=== PATIENT | male | born 1955 | race African-American/Black ===

== ENCOUNTER 2019-03-16 07:43 | Emergency (ER) | payer OTHER, SELFPAY ==
[2019-03-16 07:52] VITALS: BP 122/98; PULSE 114; RESP 18; TEMP 36.8; O2SAT 99; BMI 28.5
--- NOTE | 2019-03-16 07:55 | ED_ITS ---
HPI - Weakness General Chief complaint: Weakness Stated complaint: Pulse rate over 100 Time Seen by Provider: 03/16/19 07:46 Source: patient Mode of arrival: Wheelchair Limitations: no limitations History of Present Illness HPI Narrative: Patient is a 63-year-old male. History of hypertension. Also history of renal failure. He is on peritoneal dialysis which he does every evening. He has been on this for the past 3 years. Last week he started to not feel well. States that he was hypotensive. He went to an outside hospital. He states he was found to be anemic with a hemoglobin in the 7 range. Also was tachycardic. I do not have these results to evaluate. He stated that he received 1 unit of red blood cells. He felt slightly better for short period of time after this. Since that time he has he started to feel weak. He also states that his heart rate is elevated. Denies any chest pain or shortness of breath. States that he does produce a very small amount urine. Has not taken his blood pressure medications this morning. Related Data Home Medications Medication Instructions Recorded Confirmed amlodipine 5 mg PO DAILY 03/16/19 03/16/19 calcitriol 0.5 mcg PO DAILY 03/16/19 03/16/19 calcium carbonate [Tums E-X] 600 mg PO BID PRN 03/16/19 03/16/19 cinacalcet [Sensipar] 60 mg PO DAILY 03/16/19 03/16/19 darbepoetin triny in polysorbat 40 mcg IV Q4W 03/16/19 03/16/19 [Aranesp (in polysorbate)] diazepam 5 mg PO BID 03/16/19 03/16/19 lisinopril 40 mg PO DAILY 03/16/19 03/16/19 multivitamin with minerals 1 tab PO DAILY 03/16/19 03/16/19 paricalcitol [Zemplar] 2.5 mcg IV DIRECTED 03/16/19 03/16/19 sevelamer carbonate 800 mg PO TID 03/16/19 03/16/19 sildenafil (antihypertensive) 20 mg PO TID 03/16/19 03/16/19 [Revatio] Allergies Allergy/AdvReac Type Severity Reaction Status Date / Time penicillin G [PENICILLIN G] Allergy Unknown Verified 03/16/19 07:52 Review of Systems Constitutional Constitutional: Reports fatigue, Denies fever(s) and Reports lethargy Cardiovascular Cardiovascular: Denies chest pain, Reports rapid heart rate, Denies palpitations, Denies dyspnea and Denies dyspnea on exertion Respiratory Respiratory: Denies dyspnea and Denies dyspnea on exertion Gastrointestinal Gastrointestinal: Denies abdominal pain, Denies nausea and Denies vomiting Genitourinary Comments: No change in urine output Musculoskeletal Musculoskeletal: Denies myalgias and Denies arthralgias Integumentary/Breasts Skin/Breast: Denies lesions and Denies rash Neurologic Neurologic: Denies behavioral changes Psychiatric Psychiatric: Denies behavioral changes Endocrine Endocrine: Reports fatigue and Denies palpitations Hematologic/Lymphatic Hematologic/Lymphatic: Denies easy bleeding and Denies easy bruising Patient History Medical/Surgical History Medical History End stage renal disease due to hypertension (Acute) Hypertension (Acute) Peritoneal dialysis catheter in place (Acute) Social History Smoking Status: Never smoker Family/Social History Social History Smoking Status: Never smoker Substance Use Type: does not use Exam Initial Vital Signs Initial Vital Signs: Vital Signs Temperature 98.2 F 03/16/19 07:52 Pulse Rate 114 H 03/16/19 07:52 Respiratory Rate 18 03/16/19 07:52 Blood Pressure 122/98 H 03/16/19 07:52 Pulse Oximetry 99 03/16/19 07:52 Const General: cooperative, comfortable, well developed and well groomed Orientation: alert, awake and oriented x3 Resp Effort & Inspection: normal respiratory effort Auscultation: clear to auscultation bilaterally Cardio Rate: tachycardic Rhythm: regular rhythm Pulses: radial pulses present GI Inspection: non-distended Palpation: soft Other: Peritoneal dialysis catheter left lower quadrant without signs very Skin Lesions: no lesions Rashes: no rashes Neuro General: alert, awake and oriented x3 Cognition: normal cognition Speech: speech normal Extrem General: normal to inspection and capillary refill normal Psych Appearance: grossly normal and well kempt Course Orders Ordered: ED Orders 03/16/19 08:57 Ammonia (NH3) Stat Discontinued Medications Sodium Chloride (Normal Saline 0.9%) 1,000 mls @ 500 mls/hr IV BOLUS ONE Stop: 03/16/19 11:53 Last Infusion: 03/16/19 11:56 Dose: 0 mls/hr Documented by: Admin: 03/16/19 10:04 Dose: 500 mls/hr Documented by: LYNDSEY Sodium Chloride (Normal Saline 0.9%) 500 mls @ 1,000 mls/hr IV BOLUS ONE Stop: 03/16/19 12:37 Last Infusion: 03/16/19 13:10 Dose: 0 mls/hr Documented by: Admin: 03/16/19 12:12 Dose: 1,000 mls/hr Documented by: JOSHUA Vital Signs Vital signs: Vital Signs - 8 hr 03/16/19 10:06 03/16/19 11:56 03/16/19 12:30 Pulse Rate 111 H 109 H 93 H Respiratory Rate 18 18 21 Blood Pressure Blood Pressure [Left Arm] 101/78 121/83 106/78 Pulse Oximetry 100 100 97 03/16/19 13:34 Pulse Rate 110 H Respiratory Rate 16 Blood Pressure 113/74 Blood Pressure [Left Arm] Pulse Oximetry 98 MDM - Weakness Lab Data Attestation: I reviewed the patient's lab results. Result diagrams: 03/16/19 08:05 03/16/19 08:05 Labs: Lab Results 03/16/19 03/16/19 03/16/19 Range/Units 08:05 08:05 08:05 WBC 6.7 (4.5-11.0) X10^3/uL RBC 3.11 L (4.5-5.9) X10^6/uL Hgb 9.2 L (13.5-17.5) g/dL Hct 26.7 L (41-53) % MCV 85.7 (80-100) fL MCH 29.6 (26-34) PG MCHC 34.5 (30-36) % RDW 18.6 H (11.6-14.8) % Plt Count 365 (150-400) X10^3/uL Neut % (Auto) 78.3 H (50-75) % Lymph % (Auto) 9.4 L (25-40) % [place] % (Auto) 9.7 (3-14) % Eos % (Auto) 1.5 L (2-4) % Baso % (Auto) 1.1 (0-2) % Neut # (Auto) 5300 (9337-2710) /uL Lymph # (Auto) 600 L (5635-6227) /uL [place] # (Auto) 700 (0-900) /uL Eos # (Auto) 100 (0-450) /uL Baso # (Auto) 100 (0-100) /uL Sodium 129 L (137-145) mmol/L Potassium 4.9 (3.4-5.1) mmol/L Chloride 86 L (98-107) mmol/L Carbon Dioxide 21 L (22-32) mmol/L BUN 86 H (9-20) mg/dL Creatinine 17.30 H* (0.66-1.25) mg/dL Estimated GFR 2.8 L (>60) mL/min BUN/Creatinine Ratio 5.0 L (6-22) Glucose 143 H (80-110) mg/dL Calcium 10.2 (8.4-10.2) mg/dL Total Bilirubin 0.9 (0.2-1.3) mg/dL AST 69 H (17-59) IU/L ALT 102 H (21-72) IU/L Alkaline Phosphatase 87 (38-126) U/L Ammonia (9-30) umol/L Total Protein 7.1 (6.3-8.2) g/dL Albumin 3.8 (3.5-5.0) g/dL Globulin 3.3 (1.7-4.1) g/dL Albumin/Globulin Ratio 1.2 (1.0-2.8) Lipase 260 (23-300) U/L Blood Type O Positive Antibody Screen Negative 03/16/19 Range/Units 08:57 WBC (4.5-11.0) X10^3/uL RBC (4.5-5.9) X10^6/uL Hgb (13.5-17.5) g/dL Hct (41-53) % MCV (80-100) fL MCH (26-34) PG MCHC (30-36) % RDW (11.6-14.8) % Plt Count (150-400) X10^3/uL Neut % (Auto) (50-75) % Lymph % (Auto) (25-40) % [place] % (Auto) (3-14) % Eos % (Auto) (2-4) % Baso % (Auto) (0-2) % Neut # (Auto) (0413-6590) /uL Lymph # (Auto) (9364-8813) /uL [place] # (Auto) (0-900) /uL Eos # (Auto) (0-450) /uL Baso # (Auto) (0-100) /uL Sodium (137-145) mmol/L Potassium (3.4-5.1) mmol/L Chloride (98-107) mmol/L Carbon Dioxide (22-32) mmol/L BUN (9-20) mg/dL Creatinine (0.66-1.25) mg/dL Estimated GFR (>60) mL/min BUN/Creatinine Ratio (6-22) Glucose (80-110) mg/dL Calcium (8.4-10.2) mg/dL Total Bilirubin (0.2-1.3) mg/dL AST (17-59) IU/L ALT (21-72) IU/L Alkaline Phosphatase (38-126) U/L Ammonia < 9.0 L (9-30) umol/L Total Protein (6.3-8.2) g/dL Albumin (3.5-5.0) g/dL Globulin (1.7-4.1) g/dL Albumin/Globulin Ratio (1.0-2.8) Lipase (23-300) U/L Blood Type Antibody Screen ECG Data Attestation: I personally reviewed and interpreted this ECG as follows: Prior ECG tracings: not available for review Interpretation: Sinus tachycardia Left axis deviation Ventricular rate [address] T wave changes MDM Narrative Medical decision making narrative: Patient's hemoglobin and hematocrit low today but it does not explain his symptoms. His creatinine is elevated but he does do nightly peritoneal dialysis. His potassium is unremarkable. Discussing with the patient does appear that he is below his dry weight. He states that he is taking ?the maximum amount ?of fluid that he can take off at night according to his fish worm grower. He has not been eating or drinking recently. Patient was given gentle hydration here in the ER which did improve his blood pressure and he also states that he felt better. He still remained tachycardic into the low 100s however is not having any chest pain. I did discuss the case with the on- call fish worm grower at [facility] who was on-call for the patient's primary fish worm grower who recommended the gentle hydration. I do not feel that the patient needs blood transfusion. I do not feel that he needs emergent dialysis. He is not in heart failure. His potassium is unremarkable. Patient did become somewhat short of breath when he stood up however when he walked around the department his heart rate did not change. His oxygen saturations did not change. Had a long discussion with the patient regarding his symptoms. He does have a follow-up tomorrow with his primary provider. He does have contact with his fish worm grower. Informed him that he needs to talk with his fish worm grower about any changes to his dialysis regimen. Patient was given return precautions and follow-up instructions. I have a high suspicion that his symptoms are related to being dehydrated. He expressed understanding and agreement with plan. Discharge Plan Departure Patient Disposition: Home Clinical Impression: Dehydration, Tachycardia Discharge Date/Time: 03/16/19 13:36 Instructions: Peritoneal Dialysis Activity Restrictions/Additional Instructions: I do recommend that you talk with your fish worm grower to see if you need to change any of your dialysis settings. Keep all of your scheduled medical appointments. Return to the emergency department for any new or worsening symptoms Prescriptions: No Action amlodipine 10 mg tablet 5 mg PO DAILY RF: 0 lisinopril 40 mg tablet 40 mg PO DAILY RF: 0 diazepam 5 mg tablet 5 mg PO BID RF: 0 sevelamer carbonate 800 mg tablet 800 mg PO TID RF: 0 calcium carbonate [Tums E-X] 300 mg (750 mg) Tablet,Chewable 600 mg PO BID PRN (Reason: Indigestion) RF: 0 paricalcitol [Zemplar] 2 mcg/mL Solution 2.5 mcg IV DIRECTED RF: 0 calcitriol 0.5 mcg Capsule 0.5 mcg PO DAILY RF: 0 multivitamin with minerals Tablet 1 tab PO DAILY RF: 0 cinacalcet [Sensipar] 30 mg Tablet 60 mg PO DAILY RF: 0 sildenafil (antihypertensive) [Revatio] 20 mg Tablet 20 mg PO TID RF: 0 Aranesp (in polysorbate) 40 mcg/0.4 mL Syringe 40 mcg IV Q4W RF: 0 Referrals: Michael Rivera MD [Primary Care Provider] -
[2019-03-16 08:16] LABS: Add Manual Diff / Slide Review NO; Basophils Absolute Auto 100 /uL (0-100); Basophils Percent Auto 1.1 % (0-2); Eosinophils Absolute Auto 100 /uL (0-450); Eosinophils Percent Auto 1.5 % (2-4); Hematocrit 26.7 % (41-53); Hemoglobin 9.2 g/dL (13.5-17.5); Lymphocytes Absolute Auto 600 /uL (1100-4500); Lymphocytes Percent Auto 9.4 % (25-40); Mean Corpuscular HGB Conc 34.5 % (30-36); Mean Corpuscular Hemoglobin 29.6 PG (26-34); Mean Corpuscular Volume 85.7 fL (80-100); Monocytes Absolute Auto 700 /uL (0-900); Monocytes Percent Auto 9.7 % (3-14); Neutrophils Absolute Auto 5300 /uL (1500-7000); Neutrophils Percent Auto 78.3 % (50-75); Platelet Count 365 X10^3/uL (150-400); Red Blood Cell Count 3.11 X10^6/uL (4.5-5.9); Red Cell Distribution Width 18.6 % (11.6-14.8); White Blood Cell Count 6.7 X10^3/uL (4.5-11.0)
[2019-03-16 08:26] LABS: Alanine Aminotransferase 102 IU/L (21-72); Albumin 3.8 g/dL (3.5-5.0); Albumin Globulin Ratio 1.2 (1.0-2.8); Alkaline Phosphatase 87 U/L (38-126); Aspartate Aminotransferase 69 IU/L (17-59); Bilirubin Total 0.9 mg/dL (0.2-1.3); Blood Urea Nitrogen 86 mg/dL (9-20); Calcium 10.2 mg/dL (8.4-10.2); Carbon Dioxide 21 mmol/L (22-32); Chloride 86 mmol/L (98-107); Globulin 3.3 g/dL (1.7-4.1); Glucose 143 mg/dL (80-110); HEMOLYSIS < 15 (0-50); Lipase 260 U/L (23-300); Potassium 4.9 mmol/L (3.4-5.1); Sodium 129 mmol/L (137-145); Total Protein 7.1 g/dL (6.3-8.2)
[2019-03-16 08:43] LABS: Estimated Glomerular Filt Rate 2.8 mL/min (>60)
[2019-03-16 09:00] VITALS: BP 96/75; PULSE 107; RESP 15; O2SAT 97
[2019-03-16 09:19] LABS: Ammonia (NH3) < 9.0 umol/L (9-30)
[2019-03-16] MEDS: SODIUM CHLORIDE 0.9% 1,000 ML 500 ML IV (10:04)
[2019-03-16 10:06] VITALS: BP 101/78; PULSE 111; RESP 18; O2SAT 100
[2019-03-16 11:56] VITALS: BP 121/83; PULSE 109; RESP 18; O2SAT 100
[2019-03-16] MEDS: SODIUM CHLORIDE 0.9% 500 ML 1000 ML IV (12:12)
[2019-03-16 12:30] VITALS: BP 106/78; PULSE 93; RESP 21; O2SAT 97
[2019-03-16 13:34] VITALS: BP 113/74; PULSE 110; RESP 16; O2SAT 98
== END 2019-03-16 13:36 | disposition home or self-care (01) ==
PROVIDERS: Emergency Provider Emergency Medicine; PCP Family Medicine
DX: E86.0 Dehydration (principal); R00.0 Tachycardia, unspecified
CPT/HCPCS: 36415; 80053; 82140; 83690; 85025; 86850; 86900; 86901; 93005; 96360; 96361; 99283; 99284

== ENCOUNTER 2019-04-20 11:15 | Emergency (ER) | payer OTHER, SELFPAY ==
[2019-04-20 11:29] VITALS: BP 111/93; PULSE 81; RESP 16; TEMP 35.4; O2SAT 99; BMI 29.2
[2019-04-20 11:30] VITALS: BP 117/94; PULSE 79; RESP 19; O2SAT 100
[2019-04-20 12:00] VITALS: BP 130/116; PULSE 97; RESP 18; O2SAT 100
--- NOTE | 2019-04-20 12:12 | ED_ITS ---
HPI - Abdominal Pain <Whitney PaintingGRAYP-BC - Last Filed: 04/20/19 16:18> General Chief Complaint: Abdominal Pain Stated Complaint: Urinary Retention x2 Days, Dialysis pt Time Seen by Provider: 04/20/19 11:22 Source: patient Mode of arrival: EMS Limitations: no limitations History of Present Illness HPI narrative: The patient is a 63-year-old male nonsmoker with history of renal failure on dialysis who presents for chief complaint of dysuria, urgency and frequency. He states he gets hemodialysis Saturday. He has recently transitioning off of peritoneal dialysis. He denies any fevers nausea vomiting. He states that his urethra hurts inside of his penis. He states that his bladder as pressure that he feels like he needs to urinate a lot. He states that he still makes some urine, but not very much normally urinates every few days or so. He complains of diarrhea last week. He has not taken anything to feel better. He states that his foreman/project manager is Dr. Madrigal in [place] him. He denies any possibility of sexually transmitted infections. He states that he heart s dialysis scheduled for tonight at 5 pm. Related Data Home Medications Medication Instructions Recorded Confirmed amlodipine 10 mg PO DAILY 03/16/19 03/16/19 calcitriol 0.5 mcg PO DAILY 03/16/19 03/16/19 calcium carbonate [Tums E-X] 600 mg PO BID PRN 03/16/19 03/16/19 cinacalcet [Sensipar] 60 mg PO DAILY 03/16/19 03/16/19 darbepoetin triny in polysorbat 40 mcg IV Q4W 03/16/19 03/16/19 [Aranesp (in polysorbate)] diazepam 5 mg PO BID 03/16/19 04/20/19 lisinopril 40 mg PO DAILY 03/16/19 04/20/19 multivitamin with minerals 1 tab PO DAILY 03/16/19 03/16/19 paricalcitol [Zemplar] 2.5 mcg IV DIRECTED 03/16/19 03/16/19 sevelamer carbonate 1,600 mg PO TID 03/16/19 03/16/19 sildenafil (pulm.hypertension) 20 mg PO TID 03/16/19 03/16/19 [Revatio] metoprolol tartrate 50 mg PO BID 04/20/19 04/20/19 Previous Rx's Medication Instructions Recorded ciprofloxacin HCl [Cipro] 500 mg PO DAILY #7 tab 04/20/19 Allergies Allergy/AdvReac Type Severity Reaction Status Date / Time penicillin G [PENICILLIN G] Allergy Unknown Verified 03/16/19 07:52 Review of Systems <TOMA Camarena - Last Filed: 04/20/19 16:18> Review of Systems Narrative: GENERAL: Denies chills, fatigue, malaise, fever, sweats. HEENT: Denies sinus pain, ear pain, sore throat, difficulty swallowing, dizziness. RESPIRATORY: Denies dyspnea, cough, wheezing, hemoptysis, sputum. CARDIOVASCULAR: Denies chest pain, palpitations, orthopnea, edema, GASTROINTESTINAL: See HPI : See HPI MUSCULOSKELETAL: denies weakness, joint pain, or bony pain SKIN: Denies rash, skin lesions, or other NEUROLOGIC: Denies weakness, headache, numbness, change in speech, confusion, seizures, incoordination. PSYCHIATRIC: No concerning psychosocial issues. 12 point review of systems is negative except for those stated above Patient History <TOMA Camarena - Last Filed: 04/20/19 16:18> Medical History End stage renal disease due to hypertension (Acute) Hypertension (Acute) Peritoneal dialysis catheter in place (Acute) Social History Smoking Status: Never smoker Substance Use Type: does not use Exam <TOMA Camarena - Last Filed: 04/20/19 16:18> Narrative Exam Narrative: GENERAL: This is a well-nourished, well-developed patient, in no acute distress HEAD: Atraumatic. Normocephalic. No temporal or scalp tenderness. EYES: Pupils equal round and reactive. Extraocular motions intact. No scleral icterus. No injection or drainage. ENT: Nose without bleeding, purulent drainage or septal hematoma. Throat without erythema, tonsillar hypertrophy or exudate. Uvula midline. Airway patent. NECK: Trachea midline. No JVD or lymphadenopathy. Supple, nontender, no meningeal signs. CARDIOVASCULAR: Regular rate and rhythm without murmurs, gallops, or rubs. RESPIRATORY: Clear to auscultation. Breath sounds equal bilaterally. No wheezes, rales, or rhonchi. GASTROINTESTINAL: Abdomen soft, nondistended. No hepato-splenomegaly, or palpable masses. No guarding. Diffuse tenderness to suprapubic palpation. Peritoneal dialysis catheter in place with no surrounding erythema or drainage. EXTREMITIES: No clubbing, cyanosis, or edema. No joint tenderness, effusion, or edema noted. BACK: Nontender without deformity or crepitance. No flank tenderness. NEURO: AOx3. SKIN: No rash or erythema on visible skin Initial Vital Signs Initial Vital Signs: Vital Signs Temperature 95.8 F L 04/20/19 11:29 Pulse Rate 81 04/20/19 11:29 Respiratory Rate 16 04/20/19 11:29 Blood Pressure 111/93 H 04/20/19 11:29 Pulse Oximetry 99 04/20/19 11:29 <Gabriela Nur MD - Last Filed: 04/20/19 19:31> Initial Vital Signs Initial Vital Signs: Vital Signs Temperature 95.8 F L 04/20/19 11:29 Pulse Rate 81 04/20/19 11:29 Respiratory Rate 16 04/20/19 11:29 Blood Pressure 111/93 H 04/20/19 11:29 Pulse Oximetry 99 04/20/19 11:29 Course <ALF Camarena-BC - Last Filed: 04/20/19 16:18> Orders Ordered: ED Orders 04/20/19 13:05 Amylase Stat Complete Blood Count AUTO DIFF Stat Comprehensive Metabolic Panel Stat Lipase Stat 04/20/19 14:06 EKG-12 Lead Stat Vital Signs Vital signs: Vital Signs - 8 hr 04/20/19 12:00 04/20/19 13:00 04/20/19 14:36 Pulse Rate 97 H 81 80 Respiratory Rate 18 23 19 Blood Pressure [Right Arm] 130/116 H 124/107 H 131/99 H Pulse Oximetry 100 98 <Gabriela Nur MD - Last Filed: 04/20/19 19:31> Orders Ordered: ED Orders 04/20/19 13:05 Amylase Stat Complete Blood Count AUTO DIFF Stat Comprehensive Metabolic Panel Stat Lipase Stat 04/20/19 14:06 EKG-12 Lead Stat Vital Signs Vital signs: Vital Signs - 8 hr 04/20/19 12:00 04/20/19 13:00 04/20/19 14:36 Pulse Rate 97 H 81 80 Respiratory Rate 18 23 19 Blood Pressure [Right Arm] 130/116 H 124/107 H 131/99 H Pulse Oximetry 100 98 MDM - Abdominal Pain <Whitney Painting, TICKET COUNTER-BC - Last Filed: 04/20/19 16:18> Lab Data Result diagrams: 04/20/19 13:05 04/20/19 13:05 Labs: Lab Results 04/20/19 04/20/19 Range/Units 13:05 13:05 WBC 12.4 H (4.5-11.0) X10^3/uL RBC 4.32 L (4.5-5.9) X10^6/uL Hgb 13.3 L (13.5-17.5) g/dL Hct 40.6 L (41-53) % MCV 94.0 (80-100) fL MCH 30.7 (26-34) PG MCHC 32.7 (30-36) % RDW 25.2 H (11.6-14.8) % Plt Count (150-400) X10^3/uL Neut % (Auto) Not Reportable Lymph % (Auto) Not Reportable [place] % (Auto) Not Reportable Eos % (Auto) Not Reportable Baso % (Auto) Not Reportable Lymph # (Auto) Not Reportable [place] # (Auto) Not Reportable Baso # (Auto) Not Reportable Total Counted 100 Seg Neutrophils % 87.0 H (38-70) % Band Neutrophils % 2.0 L (3-7) % Lymphocytes % (Manual) 3.0 L (25-45) % Monocytes % (Manual) 8.0 (2-11) % Neutrophils # (Manual) 38358 H (7331-0583) /uL Nucleated RBCs 7 H ( - 0) #/Diff Platelet Estimate Adequate on smear RBC Morphology See below Polychromasia 1+ H Poikilocytosis 1+ H Anisocytosis 2+ H Sodium 137 (137-145) mmol/L Potassium 6.8 H* (3.4-5.1) mmol/L Chloride 98 (98-107) mmol/L Carbon Dioxide 17 L (22-32) mmol/L BUN 91 H (9-20) mg/dL Creatinine 9.60 H* (0.66-1.25) mg/dL Estimated GFR 5.6 L (>60) mL/min BUN/Creatinine Ratio 9.5 (6-22) Glucose 106 (80-110) mg/dL Calcium 10.4 H (8.4-10.2) mg/dL Total Bilirubin 2.0 H (0.2-1.3) mg/dL AST 699 H (17-59) IU/L ALT 830 H (<50) IU/L Alkaline Phosphatase 100 (38-126) U/L Total Protein 6.9 (6.3-8.2) g/dL Albumin 3.8 (3.5-5.0) g/dL Globulin 3.1 (1.7-4.1) g/dL Albumin/Globulin Ratio 1.2 (1.0-2.8) Amylase 148 H (30-110) U/L Lipase 239 (23-300) U/L ECG Data Attestation: I personally reviewed and interpreted this ECG as follows: Interpretation: Sinus rhythm. Ventricular rate 78. No ST elevation or depression noted. No ectopy noted. P.r. interval 144. QRS duration 117. Viewed by Dr Liudmila CUNNINGHAM Narrative Medical decision making narrative: The patient is a 63-year-old male with history of end-stage renal disease on hemodialysis who presents with a chief co mplaint of dysuria, suprapubic pain, frequent urinary urges. He states he is barely able to make urine, but urinated on Saturday. He states he urinates approximately every 3 days or so. We attempted to obtain a urine sample including straight cath after a bladder scan for 20 cc more unable to obtain a sample. I spoke with the on-call foreman/project manager from Dr. Madrigal's office, Dr Lopez regarding the patient as he has several UTI symptoms, no significant leukocytosis, no flank pain. I discussed the possibility of empirically treating for UTI, which is supported by [facility]. I discussed the fact that the patient's creatinine is 9.6 and his potassium is 6.8. However he has no EKG changes. Patient was discharged with urine supplies, I discussed that he needs to follow up with PCP or is a foreman/project manager for an order for a urinalysis. I did discuss the patient's lab results with him, stated he has to go to dialysis, which is agreed upon by Nephrology. I discussed that is to go up to dialysis immediately after discharge. Given that the patient has an on no allergy to amoxicillin and penicillin, placed him on Cipro 500 mg Q 24 hours as per up-to-date recommendations. I discussed at length that he needs to follow up with primary care provider and Nephrology. Patient has no questions or concerns upon discharge and states understanding of return precautions and follow-up care. I discussed with the patient that he has to go to dialysis today given his labs, I discussed that elevated potassium could be fatal. <Gabriela Nur MD - Last Filed: 04/20/19 19:31> Lab Data Labs: Lab Results 04/20/19 04/20/19 Range/Units 13:05 13:05 WBC 12.4 H (4.5-11.0) X10^3/uL RBC 4.32 L (4.5-5.9) X10^6/uL Hgb 13.3 L (13.5-17.5) g/dL Hct 40.6 L (41-53) % MCV 94.0 (80-100) fL MCH 30.7 (26-34) PG MCHC 32.7 (30-36) % RDW 25.2 H (11.6-14.8) % Plt Count (150-400) X10^3/uL Neut % (Auto) Not Reportable Lymph % (Auto) Not Reportable [place] % (Auto) Not Reportable Eos % (Auto) Not Reportable Baso % (Auto) Not Reportable Lymph # (Auto) Not Reportable [place] # (Auto) Not Reportable Baso # (Auto) Not Reportable Total Counted 100 Seg Neutrophils % 87.0 H (38-70) % Band Neutrophils % 2.0 L (3-7) % Lymphocytes % (Manual) 3.0 L (25-45) % Monocytes % (Manual) 8.0 (2-11) % Neutrophils # (Manual) 82185 H (1959-9532) /uL Nucleated RBCs 7 H ( - 0) #/Diff Platelet Estimate Adequate on smear RBC Morphology See below Polychromasia 1+ H Poikilocytosis 1+ H Anisocytosis 2+ H Sodium 137 (137-145) mmol/L Potassium 6.8 H* (3.4-5.1) mmol/L Chloride 98 (98-107) mmol/L Carbon Dioxide 17 L (22-32) mmol/L BUN 91 H (9-20) mg/dL Creatinine 9.60 H* (0.66-1.25) mg/dL Estimated GFR 5.6 L (>60) mL/min BUN/Creatinine Ratio 9.5 (6-22) Glucose 106 (80-110) mg/dL Calcium 10.4 H (8.4-10.2) mg/dL Total Bilirubin 2.0 H (0.2-1.3) mg/dL AST 699 H (17-59) IU/L ALT 830 H (<50) IU/L Alkaline Phosphatase 100 (38-126) U/L Total Protein 6.9 (6.3-8.2) g/dL Albumin 3.8 (3.5-5.0) g/dL Globulin 3.1 (1.7-4.1) g/dL Albumin/Globulin Ratio 1.2 (1.0-2.8) Amylase 148 H (30-110) U/L Lipase 239 (23-300) U/L Discharge Plan Departure Patient Disposition: Home Clinical Impression: Acute UTI Discharge Date/Time: 04/20/19 15:57 Instructions: DI for Urinary Tract Infection (UTI) Activity Restrictions/Additional Instructions: I spoke with the physician on-call for Dr. Madrigal. He would like to start you on an antibiotic for a urinary tract infection, but please collect a urinalysis the next time you urinate. Please contact him or your PCP for an outpatient order. I have sent this to [facility] in in [place] We would like you to go to directly to your dialysis appointment this evening. You need dialysis, especially given that her potassium level is elevated. If you do not go to dialysis, this could kill you. Given that your allergic to penicillins, I have started you on ciprofloxacin. You take this every 24 hours, after dialysis on dialysis days. Prescriptions: New ciprofloxacin HCl [Cipro] 500 mg tablet 500 mg PO DAILY Qty: 7 RF: 0 No Action metoprolol tartrate 50 mg tablet 50 mg PO BID RF: 0 amlodipine 10 mg tablet 10 mg PO DAILY RF: 0 lisinopril 40 mg tablet 40 mg PO DAILY RF: 0 diazepam 5 mg tablet 5 mg PO BID RF: 0 sevelamer carbonate 800 mg tablet 1,600 mg PO TID RF: 0 calcium carbonate [Tums E-X] 300 mg (750 mg) Tablet,Chewable 600 mg PO BID PRN (Reason: Indigestion) RF: 0 paricalcitol [Zemplar] 2 mcg/mL Solution 2.5 mcg IV DIRECTED RF: 0 calcitriol 0.5 mcg Capsule 0.5 mcg PO DAILY RF: 0 multivitamin with minerals Tablet 1 tab PO DAILY RF: 0 cinacalcet [Sensipar] 30 mg Tablet 60 mg PO DAILY RF: 0 sildenafil (pulm.hypertension) [Revatio] 20 mg Tablet 20 mg PO TID RF: 0 Aranesp (in polysorbate) 40 mcg/0.4 mL Syringe 40 mcg IV Q4W RF: 0 Referrals: Danny Sandhu MD [Non-Staff] - Pierce Madrigal MD [Non-Staff] -
[2019-04-20 13:00] VITALS: BP 124/107; PULSE 81; RESP 23
[2019-04-20 13:29] LABS: Albumin 3.8 g/dL (3.5-5.0); Albumin Globulin Ratio 1.2 (1.0-2.8); Alkaline Phosphatase 100 U/L (38-126); Amylase 148 U/L (30-110); Aspartate Aminotransferase 699 IU/L (17-59); Blood Urea Nitrogen 91 mg/dL (9-20); Calcium 10.4 mg/dL (8.4-10.2); Carbon Dioxide 17 mmol/L (22-32); Chloride 98 mmol/L (98-107); Globulin 3.1 g/dL (1.7-4.1); Glucose 106 mg/dL (80-110); HEMOLYSIS 37 (0-50); Lipase 239 U/L (23-300); Sodium 137 mmol/L (137-145); Total Protein 6.9 g/dL (6.3-8.2)
[2019-04-20 13:35] LABS: BUN Creatinine Ratio 9.5 (6-22); Estimated Glomerular Filt Rate 5.6 mL/min (>60); Hematocrit 40.6 % (41-53); Hemoglobin 13.3 g/dL (13.5-17.5); Mean Corpuscular HGB Conc 32.7 % (30-36); Mean Corpuscular Hemoglobin 30.7 PG (26-34); Red Blood Cell Count 4.32 X10^6/uL (4.5-5.9); Red Cell Distribution Width 25.2 % (11.6-14.8); White Blood Cell Count 12.4 X10^3/uL (4.5-11.0)
[2019-04-20 13:36] LABS: Add Manual Diff / Slide Review YES
[2019-04-20 13:40] LABS: Alanine Aminotransferase 830 IU/L (<50)
[2019-04-20 13:41] LABS: Neutrophils Absolute Manual 11036 /uL (3000-5900); Nucleated Red Blood Cells 7 #/Diff; Platelet Estimate Adequate on smear; Total Cells Counted 100
[2019-04-20 13:42] LABS: Anisocytosis 2+; Poikilocytosis 1+; Polychromasia 1+
[2019-04-20 13:49] LABS: Potassium 6.8 mmol/L (3.4-5.1)
[2019-04-20 14:36] VITALS: BP 131/99; PULSE 80; RESP 19; O2SAT 98
--- NOTE | 2019-04-20 14:38 | PC.NURSE ---
Straight cath with Pt permission for urine sample with no result. Small amount of blood on catheter tip upon withdrawal.
== END 2019-04-20 15:57 | disposition home or self-care (01) ==
PROVIDERS: Emergency Provider Nurse Practitioner Family
DX: N39.0 Urinary tract infection, site not specified (principal); E87.5 Hyperkalemia; I12.0 Hypertensive chronic kidney disease with stage 5 chronic kidney disease or end stage renal disease; N18.6 End stage renal disease; Z99.2 Dependence on renal dialysis
CPT/HCPCS: 36415; 51798; 80053; 82150; 83690; 85025; 93005; 99283; 99284

== ENCOUNTER → 2019-07-28 10:59 | Outpatient (CLI) | payer OTHER, SELFPAY ==
--- NOTE | 2019-07-28 11:04 | DI.CT.S_ITS ---
PROCEDURE: CT CHEST WO CON INDICATIONS: Pyothorax without fistula TECHNIQUE: Noncontrast 5 mm thick sections acquired from the pulmonary apices to the posterior costophrenic angles. 1 mm lung window, 5 mm thick coronal and sagittal and 7 mm axial MIP reformats were then acquired. For radiation dose reduction, the following was used: automated exposure control, adjustment of mA and/or kV according to patient size. COMPARISON: Outside Facility, RG, CT THORAX WITH CONTRAST, 06/15/2019, 14:27. FINDINGS: Image quality: Excellent. Lungs and pleura: There is a small degree of patchy air space opacities bilaterally adjacent to lobulated pleural effusions, which are relatively poorly detailed due to the absence of intravenous contrast. The presence or absence of septations is not established by this study, and pleural ultrasound likely is warranted bilaterally. The pleural effusion on the left has enlarged, both at the lung base, at the lateral mid lung, and extending almost to the lung apex to a small degree. A pleural drain on the right has been removed from the ovoid fluid collection posteriorly at the mid chest level reviously present on 113/. No pleural effusions or pneumothorax. Central and peripheral airways are patent and normal in caliber. Mediastinum: Heart size is normal. No pericardial effusion. No mediastinal adenopathy by size criteria. Thoracic aorta and central pulmonary arteries are normal in size. Esophagus is normal in caliber. No hiatal hernia. Bones and chest wall: No suspicious bony lesions. No vertebral body compression fractures. No axillary or supraclavicular adenopathy by size criteria. Thyroid gland is not well-seen. Abdomen: Visualized upper abdominal solid organs and bowel loops appear normal in the absence of contrast. IMPRESSION: The study is somewhat limited by the absence of intravenous contrast. A posterior right loculated pleural fluid collection has been significantly reduced in size by a previously present pleural drainage catheter, which now is absent. The left pleural effusion has significantly enlarged in quantity and extent, with what appears to be a large unilocular predominately lateral fluid collection measuring up to 20 cm AP, 7.5 cm transverse, and 23.3 cm craniocaudad. A more accurate assessment of presence or absence of septations could be obtained utilizing ultrasound scanning. Dictated by: Bill Lozano M.D. on 07/28/2019 at 17:29 Approved by: Bill Lozano M.D. on 07/28/2019 at 17:36
== END ==
PROVIDERS: PCP Family Medicine; Referring Provider Internal Medicine; Visit Provider Internal Medicine
DX: J86.9 Pyothorax without fistula (principal); J90 Pleural effusion, not elsewhere classified
CPT/HCPCS: 71250

== ENCOUNTER → 2019-08-20 11:30 | Oncology outpatient (ONC) | payer OTHER, SELFPAY ==
--- NOTE | 2019-08-19 15:01 | PC.NURSE ---
Late note; Left 2 VM's for pt to call clinic [facility] approx between 9am-10am. Pt returned call around 11:30. explained to pt that Dr. Madrigal placed order for 1 unit of blood. Pt states yeah, I'm not going to have time to do that today. Discussed pt's critical H/H that was relayed to this writer editor from Dr. Madrigal, told pt I didn't have the exact H/H count in front of me but that it was approx 6& 19. Pt states yeah, maybe I can do it tomorrow. Reiterated to pt the necessity for transfusion with H/h values in this range. Pt voiced concern regarding time, expresses needing to be finished by 5pm because of my dialysis appointment. Pt denies symptoms from low H/H. Created plan for pt to come into clinic today for at least T&C and that way the blood would ready to go as soon as pt arrives tomorrow. Pt agrees to plan. Dr. Madrigal notified of plan and in agreement. Pt aware to go to ER if cardiac or respiratory distress occur or any other symptoms occur, verbalized understanding.
[2019-08-20 11:07] VITALS: BP 159/107; PULSE 107; RESP 18; TEMP 36.7; O2SAT 96
[2019-08-20] MEDS: SODIUM CHLORIDE 0.9% 250 ML 21 ML IV (11:34)
[2019-08-20 11:39] VITALS: BP 147/102; PULSE 105; RESP 18; TEMP 36.8
[2019-08-20 11:56] VITALS: BP 131/92; PULSE 99; RESP 18; TEMP 36.9
[2019-08-20 14:45] VITALS: BP 159/109; PULSE 96; RESP 16; TEMP 36.6
== END ==
PROVIDERS: PCP Family Medicine; Referring Provider Family Medicine; Visit Provider Specialist
DX: D50.9 Iron deficiency anemia, unspecified (principal); I12.0 Hypertensive chronic kidney disease with stage 5 chronic kidney disease or end stage renal disease; N18.6 End stage renal disease; Z99.2 Dependence on renal dialysis
CPT/HCPCS: 36415; 36430; 86850; 86900; 86901; P9016

== ENCOUNTER → 2020-09-26 12:45 | Outpatient (CLI) | payer OTHER, SELFPAY ==
--- NOTE | 2020-09-26 | DI.CT.S_ITS ---
PROCEDURE: CT ABDOMEN PELVIS WO CON INDICATIONS: Unspecified abdominal pain TECHNIQUE: Noncontrast 5 mm thick sections acquired from the diaphragms to the symphysis. 5 mm coronal and sagittal reformats were then performed. For radiation dose reduction, the following was used: automated exposure control, adjustment of mA and/or kV according to patient size. COMPARISON: Outside Facility, RG, CT THORAX WITH CONTRAST, 06/15/2019, 14:27. [facility], CR, XR ABDOMEN 1 VIEW, 05/28/2018, 13:25. [facility], CT, CT CHEST WO CON, 07/28/2019, 11:05. FINDINGS: Image quality: Excellent. ABDOMEN: Lung bases: Left lower lobe subpleural nodular opacity measuring 0.7 cm, (09/26), previously 1.1 cm. Bibasilar streaky opacity. Trace right pleural effusion. Small left pleural effusion. Effusions are similar to the prior CT. Post median sternotomy. Heart size is enlarged. Coronary artery calcifications. Bilateral gynecomastia. Solid organs: Liver is normal in size. Gallbladder is not distended. Calcified gallstones. Pancreas is normal in contours. Spleen is normal in size. No adrenal nodules. Kidneys are normal in size, without hydronephrosis or nephrolithiasis. Small hyperdense cyst at the inferior pole of the left kidney. Small simple appearing cysts. Peritoneum and bowel: Unenhanced bowel loops demonstrate normal wall thickness and caliber. Diverticulosis. Mild ascites. No pneumoperitoneum. Nodes and vessels: No retroperitoneal or mesenteric adenopathy by size criteria. Aorta and inferior vena cava are normal in caliber. Extensive scattered calcified atherosclerotic plaque. Miscellaneous: Left subcutaneous abdominal wall nodular density measuring 3.1 cm, (2/51), new compared to 06/15/2019. Anasarca. PELVIS: Genitourinary: Bladder is decompressed. Miscellaneous: No inguinal hernias. Prominent groin lymph nodes. Bones: No suspicious bony lesions. L2 Schmorl's node, unchanged. No vertebral body compression fractures. IMPRESSION: 1. Left paramedian ventral abdominal wall subcutaneous nodule measuring 3.1 cm. Suspect small hematoma at the site of prior peritoneal dialysis catheter. -Recommend clinical correlation. 2. Mild ascites. Anasarca. Small left pleural effusion similar to the prior exam. 3. No bowel obstruction. Diverticulosis. Dictated by: Fer Devine M.D. on 09/26/2020 at 15:55 Approved by: Fer Devine M.D. on 09/26/2020 at 16:10
== END ==
PROVIDERS: PCP Family Medicine; Referring Provider Internal Medicine; Visit Provider Internal Medicine
DX: R10.9 Unspecified abdominal pain (principal); R22.2 Localized swelling, mass and lump, trunk; K65.9 Peritonitis, unspecified; R18.8 Other ascites; J90 Pleural effusion, not elsewhere classified; K57.90 Diverticulosis of intestine, part unspecified, without perforation or abscess without bleeding
CPT/HCPCS: 74176